=== PATIENT | male | born 1970 | race African-American/Black ===

== ENCOUNTER 2017-10-01 18:22 | Emergency (ER) | payer OTHER ==
[2017-10-01 18:55] VITALS: BP 129/82; PULSE 97; TEMP 98.7; BMI 23.1
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
[2017-10-01 19:34] LABS: EOS % 1.6 % (0-4.5); HEMATOCRIT 40.4 % (35.4-49); HEMOGLOBIN 13.8 GM/dL (11.7-16.9); LYMPH % 24.9 % (8-40); MCH 31.1 pg (25.7-33.7); MCHC 34.2 g/dl (32.0-35.9); MEAN CELL VOLUME 91.1 fl (80-96); MEAN PLT VOLUME 8.9 fl (7.5-11.1); MONO % 7.2 % (3.8-10.2); NEUT % 65.3 % (42.8-82.8); PLATELET COUNT 232 K/MM3 (134-434); RBC 4.44 M/mm3 (4.00-5.60); RDW 14.2 % (11.9-15.9); WHITE BLOOD COUNT 9.1 K/mm3 (4.0-10.0)
[2017-10-01] MEDS ORDERED: PHENYTOIN NA EXTENDED 100 MG CAPSULE (FP) PO ONE ×2 (19:37→21:27)
[2017-10-01] MEDS ORDERED: ACETAMINOPHEN 325 MG TABLET (FP) PO ONE (19:38)
[2017-10-01] MEDS ORDERED: ACETAMINOPHEN 325 MG TABLET (FP) ONE (19:43)
[2017-10-01] MEDS ORDERED: PHENYTOIN NA EXTENDED 100 MG CAPSULE (FP) ONE ×2 (19:43→21:29)
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
[2017-10-01 20:23] LABS: ALBUMIN 3.9 g/dl (3.4-5.0); ALK PHOS 64 U/L (45-117); ANION GAP 5 (8-16); BILIRUBIN,TOTAL 1.6 mg/dL (0.2-1.0); BLOOD UREA NITROGEN 15 mg/dL (7-18); CHLORIDE 108 mmol/L (98-107); CO2 28 mmol/L (21-32); CREATININE 1.1 mg/dL (0.7-1.3); GLUCOSE,RANDOM 92 mg/dL (74-106); SGOT/AST 16 U/L (15-37); SGPT/ALT 17 U/L (12-78); SODIUM 141 mmol/L (136-145); TOT PROT 7.2 g/dl (6.4-8.2)
[2017-10-01] MEDS ORDERED: ONDANSETRON *ODT* 4 MG TABLET SL ONE (20:33)
[2017-10-01] MEDS ORDERED: ONDANSETRON *ODT* 4 MG TABLET ONE (21:25)
--- NOTE | 2017-10-02 09:11 | EKG ---
Test Reason : Blood Pressure : / mmHG Vent. Rate : 075 BPM Atrial Rate : 075 BPM P-R Int : 126 ms QRS Dur : 090 ms QT Int : 350 ms P-R-T Axes : 067 075 057 degrees QTc Int : 390 ms NORMAL SINUS RHYTHM EARLY REPOLARIZATION NORMAL ECG NO PREVIOUS ECGS AVAILABLE Confirmed by LOYDA JUAREZ, SANDY ([id number]) on 10/02/2017 9:11:43 AM Referred By: Confirmed By:SANDY SCALES MD
== END 2017-10-01 22:02 | disposition home or self-care (01) ==
LOC: JER 18:22
DX: G40.909 Epilepsy, unspecified, not intractable, without status epilepticus (principal); Z21 Asymptomatic human immunodeficiency virus [HIV] infection status
CPT/HCPCS: 36415; 70450-TC; 72125-TC; 80053; 83605; 85025; 93005; 93010; 99282-25

== ENCOUNTER 2018-04-16 11:51 | Emergency (ER) | payer OTHER ==
[2018-04-16 12:02] VITALS: BP 134/74; PULSE 68; TEMP 97.8; BMI 21.5
--- NOTE | 2018-04-16 13:00 | PDOC ---
History of Present Illness - General Chief Complaint: Injury Stated Complaint: Injury TO FINGER Time Seen by Provider: 04/16/18 12:15 History Source: Patient Exam Limitations: Clinical Condition - History of Present Illness Initial Comments: 04/16/18 12:55 Patient with history of seizures disorder well-controlled present with complain of index and middle finger stuck in Cock screw [employer] attendant while trying to open a wine an hour ago. Patient reported pain when you try to move the finger out of the cock screw [employer] attendant . patient report any attrempt to remove cockscrew handle from the fingers causes severe pain and wants it to be cut out. Denies any other symtoms Timing/Duration: 1 hour Severity: moderate Past History - Past Medical History Allergies/Adverse Reactions: Allergies Allergy/AdvReac Type Severity Reaction Status Date / Time Penicillins Allergy Verified 04/16/18 12:00 shellfish derived Allergy Difficulty Verified 04/16/18 12:00 Breathing Home Medications: Ambulatory Orders Vitamin B Complex 1 each PO DAILY #30 tablet 10/05/15 Alclometasone Dipropionate 1 applic TP DAILY 09/29/17 Clonazepam [Klonopin] 0.5 mg PO TID PRN MDD 3 09/29/17 Doxycycline Monohydrate [Monodox] 50 mg PO DAILY 09/29/17 Quetiapine Fumarate [Seroquel -] 200 mg PO HS 10/28/17 Emtricitab/Rilpiviri/Tenof Ala [Odefsey Tablet] 1 each PO DAILY #30 tablet 01/15 Folic Acid - 1 mg PO DAILY #30 tablet 01/16/18 Ergocalciferol (Vitamin D2) [Vitamin D2] 50,000 unit PO WEEKLY #4 capsule Famotidine [Pepcid -] 20 mg PO DAILY PRN #30 tablet 02/20/18 Ibuprofen 600 mg PO TID PRN #12 tablet 04/16/18 Asthma: Yes COPD: No Diabetes: No Seizures: Yes (Last episode 11/11/13 & 11/06/13) - Suicide/Smoking/Psychosocial Hx Smoking History: Never smoked Have you smoked in the past 12 months: No Cigars Per Day: 0 Hx Alcohol Use: No Drug/Substance Use Hx: No Substance Use Type: None Review of Systems - Review of Systems Able to Perform ROS?: Yes Is the patient limited Panamanian proficient: No Constitutional: No: Chills, Diaphoresis, Fever, Loss of Appetite, Malaise, Night Sweats, Weakness, Weight Stable, Unintentional Wgt. Loss, Unexplained wgt Loss, Other HEENTM: No: Eye Pain, Blurred Vision, Tearing, Recent change in vision, Double Vision, Cataracts, Ear Pain, Ocular Prothesis, Ear Discharge, Nose Pain, Nose Congestion, Tinnitus, Nose Bleeding, Hearing Loss, Throat Pain, Throat Swelling , Mouth Pain, Dental Problems, Difficulty Swallowing, Mouth Swelling, Other Respiratory: No: Cough, Orthopnea, Shortness of Breath, SOB with Exertion, SOB at Rest, Stridor, Wheezing, Productive cough, Hemoptysis, Other ABD/GI: No: Abdominal Distended, Abd. Pain w/ defecation, Blood Streaked Bowels , Constipated, Diarrhea, Difficulty Swallowing, Nausea, Poor Appetite, Poor Fluid Intake, Rectal Bleeding, Vomiting, Indigestion, Abdominal cramping, Tarry Stools, Other Musculoskeletal: Yes: See HPI All Other Systems: Reviewed and Negative *Physical Exam - Vital Signs Last Vital Signs Temp Pulse Resp BP Pulse Ox 97.8 F 68 18 134/74 100 04/16/18 12:00 04/16/18 12:00 04/16/18 12:00 04/16/18 12:00 04/16/18 12:00 - Physical Exam Comments: 04/16/18 12:58 GENERAL: Well developed, well nourished. Awake and alert. No acute distress. HEENT: Normocephalic, atraumatic. PERRLA, EOMI. No conjunctival pallor. Sclera are non- icteric. Moist mucous membranes. Oropharynx is clear. NECK: Supple. Full ROM. No JVD. Carotid pulses 2+ and symmetric, without bruits. No thyromegaly. No lymphadenopathy. CARDIOVASCULAR: Regular rate and rhythm. No murmurs, rubs, or gallops. Distal pulses are 2+ and symmetric. PULMONARY: No evidence of respiratory distress. Lungs clear to auscultation bilaterally. No wheezing, rales or rhonchi. ABDOMINAL: Soft. Non-tender. Non-distended. No rebound or guarding. No organomegaly. Normoactive bowel sounds. MUSCULOSKELETAL Normal range of motion at all joints. No bony deformities or tenderness. No CVA tenderness. EXTREMITIES: right index and middle finger trapped in cockscrew wine [employer] attendant handle . no evidence of finger fracture or dislocation No cyanosis. No clubbing. No edema. No calf tenderness. SKIN: Warm and dry. Normal capillary refill. No rashes. No jaundice. NEUROLOGICAL: Alert, awake, appropriate. Cranial nerves 2-12 intact. No deficits to light touch and temperature in face, upper extremities and lower extremities. No motor deficits in the in face, upper extremities and lower extremities. Normoreflexic in the upper and lower extremities. Normal speech. Toes are down- going bilaterally. Gait is normal without ataxia. PSYCHIATRIC: Cooperative. Good eye contact. Appropriate mood and affect. General Appearance: Yes: Nourished, Appropriately Dressed. No: Apparent Distress Medical Decision Making - Medical Decision Making 04/16/18 13:00 Patient with history of seizure disorder well-controlled present with complain of 2 fingers stuck in handle of wine health club attendant. Ring of the wine health club attendant with the ring cutter and patient's fingers were able to be freed. No evidence of fracture or dislocation to fingers after removing the ring. Patient stable for home discharge on NSAIDs for pain as needed *DC/Admit/Observation/Transfer Diagnosis at time of Disposition: Entrapment of collateral ligament of finger - Discharge Dispostion Disposition: HOME Condition at time of disposition: Stable - Prescriptions Prescriptions: Ibuprofen 600 mg PO TID PRN #12 tablet PRN Reason: pain - Referrals - Patient Instructions - Post Discharge Activity
== END 2018-04-16 13:14 | disposition home or self-care (01) ==
LOC: JERFT 11:51
DX: S69.81XA Other specified injuries of right wrist, hand and finger(s), initial encounter (principal); W49.09XA Other specified item causing external constriction, initial encounter; Y93.89 Activity, other specified; Y92.89 Other specified places as the place of occurrence of the external cause; Y99.8 Other external cause status; J45.909 Unspecified asthma, uncomplicated; Z86.69 Personal history of other diseases of the nervous system and sense organs; Z88.0 Allergy status to penicillin; Z91.013 Allergy to seafood
CPT/HCPCS: 99281-25

== ENCOUNTER 2019-01-18 18:19 | Emergency (ER) | payer OTHER ==
[2019-01-18 18:30] VITALS: BP 102/62; PULSE 87; TEMP 98; BMI 22.9
--- NOTE | 2019-01-18 18:42 | PDOC ---
Rapid Medical Evaluation Chief Complaint: Bite Time Seen by Provider: 01/18/19 18:31 Medical Evaluation: Allergies Allergy/AdvReac Type Severity Reaction Status Date / Time Penicillins Allergy Verified 01/18/19 18:24 shellfish derived Allergy Difficulty Verified 01/18/19 18:24 Breathing Vital Signs Temp Pulse Resp BP Pulse Ox 98.0 F 87 16 102/62 100 01/18/19 18:25 01/18/19 18:25 01/18/19 18:25 01/18/19 18:25 01/18/19 18:25 01/18/19 18:37 Pt presents to the ED with c/o: s/p dog bite yesterday and received rabies vacc , wound packed vs sutured, and placed on clindamycin, Pt concerned because did not get info on wound care and here for 2nd opinion, had tdap 3 months ago, also states pins/ needles to left foot Pt on brief exam: area dressed with wet dsg, 2+ pedal pulse of left extremity Pt ordered for: none Pt to proceed to the ED Discharge Disposition - Diagnosis Wound check, abscess - Referrals - Patient Instructions - Post Discharge Activity
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
== END 2019-01-18 20:26 | disposition home or self-care (01) ==
LOC: JERFT 18:19
DX: Z51.89 Encounter for other specified aftercare (principal); Z48.00 Encounter for change or removal of nonsurgical wound dressing; S81.852D Open bite, left lower leg, subsequent encounter; W54.0XXD Bitten by dog, subsequent encounter
CPT/HCPCS: 99281-25

== ENCOUNTER 2019-01-21 13:11 | Emergency (ER) | payer OTHER ==
[2019-01-21 13:35] VITALS: BP 129/72; PULSE 78; TEMP 98.1; BMI 22.9
--- NOTE | 2019-01-21 15:10 | PDOC ---
History of Present Illness - General Chief Complaint: Revisit,Wound Recheck Stated Complaint: WOUND Time Seen by Provider: 01/21/19 14:01 History Source: Patient - History of Present Illness Initial Comments: 01/21/19 15:05 48-year-old male with past medical history of seizures complaining of right lower extremity edema and pain worsening over the last day. Patient reports 5 days ago he was bit by a pit bull and was seen at [facility] ER, patient received rabies vaccine and immunoglobulin. Patient was also seen in this ER on Friday 3 days ago for a wound check. She reports worsening pain to the calf and increased swelling to ankle and foot. There is no redness or streaking or drainage from the wound site. Patient is currently on Keflex,patient reports that he was following up with wound clinic here. Pending an appointment Past History - Past Medical History Allergies/Adverse Reactions: Allergies Allergy/AdvReac Type Severity Reaction Status Date / Time Penicillins Allergy Verified 01/18/19 18:24 shellfish derived Allergy Difficulty Verified 01/18/19 18:24 Breathing Home Medications: Ambulatory Orders Vitamin B Complex 1 each PO DAILY #30 tablet 10/05/15 Alclometasone Dipropionate 1 applic TP DAILY 09/29/17 Folic Acid - 1 mg PO DAILY #30 tablet 01/16/18 Guaifenesin Dm [Robitussin Dm -] 10 ml PO Q4H PRN #240 ml 06/30/18 Loratadine [Claritin -] 10 mg PO DAILY PRN #30 tablet 06/30/18 Sodium Chloride [Saline Nasal [place]] 1 - 2 sprays NS PRN #1 spray 06/30/18 Acetaminophen [Tylenol .Regular Strength -] 650 mg PO Q6H PRN #60 tablet Emtricitab/Rilpiviri/Tenof Ala [Odefsey Tablet] 1 each PO DAILY #30 tablet 12/21 Famotidine [Pepcid -] 20 mg PO DAILY PRN #30 tablet 12/21/18 Multivitamin,Ther and Minerals [Vitamin and Minerals] 1 each PO DAILY #30 tablet 12/21/18 Ergocalciferol (Vitamin D2) [Vitamin D2] 50,000 unit PO WEEKLY #4 capsule Asthma: Yes COPD: No Diabetes: No Seizures: Yes - Immunization History Immunization Up to Date: Yes - Suicide/Smoking/Psychosocial Hx Smoking History: Never smoked Have you smoked in the past 12 months: No Cigars Per Day: 0 Information on smoking cessation initiated: No Hx Alcohol Use: No Drug/Substance Use Hx: No Substance Use Type: None Review of Systems - Review of Systems Able to Perform ROS?: Yes Is the patient limited Indonesian proficient: No Constitutional: No: Symptoms Reported, See HPI, Chills, Diaphoresis, Fever, Loss of Appetite, Malaise, Night Sweats, Weakness, Weight Stable, Unintentional Wgt. Loss, Unexplained wgt Loss, Other Musculoskeletal: Yes: Joint Swelling, Muscle Pain, Muscle Weakness, Other (left lower extremity edema) *Physical Exam - Vital Signs Last Vital Signs Temp Pulse Resp BP Pulse Ox 98.1 F 78 16 129/72 98 01/21/19 13:33 01/21/19 13:33 01/21/19 13:33 01/21/19 13:33 01/21/19 13:33 - Physical Exam General Appearance: Yes: Appropriately Dressed Musculoskeletal: positive: Other (unable to fully dorsiflex left foot, calf tenderness no streaking erythema noted. dog bites to gillespie clean dry and intact) Extremity: positive: Normal Capillary Refill Integumentary: positive: Normal Color, Dry, Warm Neurologic: positive: Fully Oriented, Alert, Normal Mood/Affect ED Treatment Course - RADIOLOGY Radiology Studies Ordered: Category Date Time Status LOWER EXTREMITY CT WITH CONTR [CT] Stat CT Scan 01/21/19 14:51 Ordered DUPLEX VASCUL US-1 LEG [US] Stat Ultrasound 01/21/19 14:52 Ordered Progress Note - Progress Note Progress Note: A: left calf pain P: US CT labs' r/o compartment syndrome vs. abscess? patient signed out to Maureen Staton *DC/Admit/Observation/Transfer Diagnosis at time of Disposition: Pain of left calf - Discharge Dispostion Condition at time of disposition: Stable - Referrals Referrals: Rosalinda Romo NP [Primary Care Provider] - - Patient Instructions - Post Discharge Activity
[2019-01-21 15:21] LABS: BASO % 0.8 % (0-2.0); HEMATOCRIT 39.2 % (35.4-49); HEMOGLOBIN 13.4 GM/dL (11.7-16.9); LYMPH % 24.6 % (8-40); MCH 31.2 pg (25.7-33.7); MCHC 34.3 g/dl (32.0-35.9); MEAN CELL VOLUME 90.9 fl (80-96); MONO % 5.8 % (3.8-10.2); NEUT % 66.8 % (42.8-82.8); PLATELET COUNT 252 K/MM3 (134-434); RBC 4.31 M/mm3 (4.00-5.60); RDW 13.7 % (11.9-15.9); WHITE BLOOD COUNT 10.1 K/mm3 (4.0-10.0)
--- NOTE | 2019-01-21 15:28 | PDOC ---
*Physical Exam - Vital Signs Last Vital Signs Temp Pulse Resp BP Pulse Ox 98.1 F 78 16 129/72 98 01/21/19 13:33 01/21/19 13:33 01/21/19 13:33 01/21/19 13:33 01/21/19 13:33 - Physical Exam General Appearance: Yes: Nourished, Appropriately Dressed. No: Apparent Distress Respiratory/Chest: positive: Lungs Clear, Normal Breath Sounds. negative: Respiratory Distress, Accessory Muscle Use Cardiovascular: positive: Regular Rhythm, Regular Rate. negative: Murmur Integumentary: positive: Other (noted edematous Left calf with mild tenderness to area. Wounds to mid shaft of the tibia clean and dry with pink at the field tissue to center. Noted 1-2+ pitting edema to the dorsal aspect of left foot with mild ecchymosis surrounding puncture wounds and distal of wound.) Neurologic: positive: Motor Strength 5/5 (FROM of left lower extremity, able to doriflex left foot) ED Treatment Course - LABORATORY CBC & Chemistry Diagram: 01/21/19 14:59 01/21/19 14:59 Medical Decision Making - Medical Decision Making 01/21/19 15:30 Patient received in signout from LUIS Jessica . Patient was bitten by a pitbull 5 days ago and was set up for wound care on Friday but had missed the appointment due to lack of transportation. Patient here for wound check along with increasing swelling and discomfort to area. Patient denies fever, chills paresthesia, or change in temperature to the extremity. Case discussed with Flor, nurse sales strategy manager and wound care and states no vascular surgeon available for consultation case discussed with radiologist and if concern for compartment syndrome versus abscess or air to order a CT of the lower extremity with contrast. Patient will be also ordered for duplex of the lower extremity 01/21/19 15:53 Nurse sales strategy manager flor also states if imaging is negative patient may be set up for wound care appointment this upcoming Friday at 130pm 01/21/19 16:31 Laboratory Tests 01/21/19 01/21/19 14:59 14:59 WBC 10.1 H Hgb 13.4 Hct 39.2 Neutrophils % 66.8 Sodium 137 Potassium 4.6 Chloride 107 Carbon Dioxide 24 Anion Gap 5 L BUN 10 Creatinine 1.0 Random Glucose 83 Calcium 9.1 Total Bilirubin 1.3 H AST 32 ALT 23 Alkaline Phosphatase 60 Total Protein 6.7 Albumin 3.5 Duplex of the lower extremity negative for DVT. Patient in route to CT. 01/21/19 17:33 CT shows soft tissue stranding consistent with edema at the level of the calf. There is no prominent concentric subcutaneous edema at the level of the ankle along with the dorsal foot. Vocalist cutaneous and subcutaneous dizziness disruption is noted along the anteromedial aspect of the lower leg at the level of upper third tibia fibula. 4.5 x 0.6 x 0.7 focal hematoma seen within the tibias anterior muscle with surrounding intramuscular edema. A punctate cutaneous superficial subcutaneous density is seen centrally which may represent a foreign body. Patient understands he needs to elevate extremity as much as possible Patient given enough dressings and explained wound care daily. Patient also given rabies vaccine since he missed day 3 and will return on day 7 which is Friday. *DC/Admit/Observation/Transfer Diagnosis at time of Disposition: Edema, History of dog bite - Discharge Dispostion Disposition: HOME Condition at time of disposition: Good - Referrals Referrals: Rosalinda Romo INS[employer] [Primary Care Provider] - - Patient Instructions Printed Discharge Instructions: DI for Puncture Wound Additional Instructions: Please continue to keep area clean and dry and continue with antibiotics. Change dressing with bandages given today in the ER. Please return here this Friday for third dose of rabies vaccine. I have set up an appointment for you for wound care today at 1:30 next Friday at the wound care clinic here at [facility]. I also recommend elevate your leg higher than your heart to alleviate swelling and discomfort. If any worsening symptoms such as increased swelling, skin discoloration increased temperature, fever or drainage noted from the site please return to the ED sooner as this may be a sign of a worsening infection despite taking her antibiotics as prescribed - Post Discharge Activity
[2019-01-21 15:54] LABS: ALBUMIN 3.5 g/dl (3.4-5.0); ALK PHOS 60 U/L (45-117); ANION GAP 5 MMOL/L (8-16); BILIRUBIN,TOTAL 1.3 mg/dL (0.2-1); BLOOD UREA NITROGEN 10 mg/dL (7-18); CALCIUM 9.1 mg/dL (8.5-10.1); CHLORIDE 107 mmol/L (98-107); CO2 24 mmol/L (21-32); GLUCOSE,RANDOM 83 mg/dL (74-106); POTASSIUM 4.6 mmol/L (3.5-5.1); SGOT/AST 32 U/L (15-37); SGPT/ALT 23 U/L (13-61); SODIUM 137 mmol/L (136-145); TOT PROT 6.7 g/dl (6.4-8.2)
[2019-01-21] MEDS ORDERED: BACITRACIN 15 GM TUBE TOPICAL OINTMENT ONE (17:19)
[2019-01-21] MEDS ORDERED: RABIES VACCINE (PCEC)/PF 2.5 UNIT/VIAL IM ONE (17:24)
== END 2019-01-21 18:32 | disposition home or self-care (01) ==
LOC: JER 13:11 → JERFT 13:11 → JER 18:32
PROC: 3E0234Z Introduction of Serum, Toxoid and Vaccine into Muscle, Percutaneous Approach (ICD-10-PCS; principal; 2019-01-21)
DX: S81.852D Open bite, left lower leg, subsequent encounter (principal); W54.0XXD Bitten by dog, subsequent encounter
CPT/HCPCS: 36415; 73700-TC-RT; 80053; 85025; 90675; 93971-TC; 99281-25

== ENCOUNTER 2019-01-27 14:05 | Day surgery (SDC) | payer OTHER | END 2019-01-27 20:25 | disposition home or self-care (01) | LOC: JOR 14:05 → JASUSAT 14:34 → JSAMEDAYSX 15:30 → JASUSAT 20:25 ==

== ENCOUNTER 2022-08-25 14:28 | Emergency (ER) | payer OTHER ==
[2022-08-25 14:33] VITALS: BP 117/67; PULSE 87; RESP 18; TEMP 97.8; BMI 22.9
[2022-08-25] MEDS ORDERED: KETOROLAC TROMETHAMINE 30 MG/1 ML VIAL IM ONE (15:23)
[2022-08-25] MEDS ORDERED: KETOROLAC TROMETHAMINE 30 MG/1 ML VIAL ONE (15:26)
== END 2022-08-25 15:50 | disposition home or self-care (01) ==
LOC: JERFT 14:28
PROC: 3E0233Z Introduction of Anti-inflammatory into Muscle, Percutaneous Approach (ICD-10-PCS; principal; 2022-08-25)
DX: S46.011A Strain of muscle(s) and tendon(s) of the rotator cuff of right shoulder, initial encounter (principal); M54.6 Pain in thoracic spine; X50.1XXA Overexertion from prolonged static or awkward postures, initial encounter
CPT/HCPCS: 73030-TC-RT-FY; 96372; 99284-25